=== PATIENT | female | born 1980 | race Caucasian/White ===

== ENCOUNTER 2016-05-03 08:18 | Day surgery (SDC) | payer BC ==
[~2016-05-03] VITALS: Ht 152.4 cm; Wt 84.0 kg
[~2016-05-03 08:18] MED LIST: FLOMAX0.4 MG PO; Habitrol,Nicoderm CQ TD; LORTAB 5-325 M1 EACH PO; Levaquin PO; NAPROSYN500 MG PO; NOHOMEMEDS; PERCOCET 5/31 TABLET PO; Proventil,Ventolin H IH; TYLENOL EXTRA500 MG PO; ZOFRAN ODT4 MG PO
[2016-05-03 08:46] VITALS: BP 120/71
[2016-05-03 10:34] LABS: INTERNAL CONTROL VALID? YES
[2016-05-03 13:10] VITALS: BP 128/82
[2016-05-03 14:26] VITALS: BP 115/75
== END 2016-05-03 14:40 | disposition home or self-care (01) ==
LOC: SDC 08:18
PROVIDERS: Obstetrics & Gynecology
DX: N92.0 Excessive and frequent menstruation with regular cycle (principal); N80.3 Endometriosis of pelvic peritoneum; Z30.2 Encounter for sterilization; Z68.36 Body mass index [BMI] 36.0-36.9, adult; Z82.49 Family history of ischemic heart disease and other diseases of the circulatory system; Z87.891 Personal history of nicotine dependence; Z88.5 Allergy status to narcotic agent
CPT/HCPCS: 84703; J1100; J1170; J1885; J2250; J2405; J2710; J3010

== ENCOUNTER 2017-03-15 17:02 | Emergency (ER) | payer BC ==
[~2017-03-15] VITALS: Ht 152.4 cm; Wt 87.5 kg
[2017-03-15 17:08] VITALS: BP 108/81
== END 2017-03-15 17:37 | disposition left against medical advice (07) ==
LOC: EME 17:02
DX: R10.2 Pelvic and perineal pain (principal); Z53.21 Procedure and treatment not carried out due to patient leaving prior to being seen by health care provider
CPT/HCPCS: 80048; 81003; 85027

== ENCOUNTER 2017-04-19 05:31 | Day surgery (SDC) | payer BC ==
[~2017-04-19] VITALS: Ht 152.4 cm; Wt 81.6 kg
[2017-04-19 06:33] VITALS: BP 103/73
[2017-04-19 13:20] VITALS: BP 130/77
[2017-04-19 14:20] VITALS: BP 115/71
[2017-04-19 14:54] VITALS: BP 113/69
== END 2017-04-19 14:59 | disposition home or self-care (01) ==
LOC: SDC 05:31
DX: N80.1 Endometriosis of ovary (principal); N83.202 Unspecified ovarian cyst, left side; N83.201 Unspecified ovarian cyst, right side; R10.2 Pelvic and perineal pain; K66.0 Peritoneal adhesions (postprocedural) (postinfection); Z87.891 Personal history of nicotine dependence; Z82.3 Family history of stroke; Z82.49 Family history of ischemic heart disease and other diseases of the circulatory system; Z88.5 Allergy status to narcotic agent
CPT/HCPCS: 88307; J0131; J0330; J0690; J1100; J1170; J1885; J2405; J2710; J3010; J7120; S0020